=== PATIENT | male | born 1980 | race African-American/Black ===

== ENCOUNTER 2016-12-21 21:17 | Emergency (ER) | payer SELFPAY ==
[2016-12-21 21:25] VITALS: BP 106/75
[2016-12-21] MEDS ORDERED: Sodium Chloride 0.9% 10 ML Syringe FLUSH PRN (21:29)
[2016-12-21] MEDS ORDERED: methylPREDNISolone Sodium Succinate 125 MG/2 ML SDV IVPUSH ONE (21:29)
[2016-12-21] MEDS ORDERED: Albuterol/Ipratropium 3.0-0.5 MG/3 ML Neb Soln NEB ONE ×2 (21:29→21:48)
--- NOTE | 2016-12-21 21:29 | EDM.PDOC ---
ED HISTORY OF PRESENT ILLNESS - General Chief Complaint: Respiratory Problem Stated Complaint: dyspnea Time Seen by Provider: 12/21/16 21:22 Source of Information: Reports: Patient, RN, RN notes reviewed History Limitations: Reports: No limitations - History of Present Illness INITIAL COMMENTS - FREE TEXT/NARRATIVE: Patient presents to the ED at [facility] complaining of SOB and wheezing. Patient states his symptoms began about 1 hours [employer]. Patient states he has a long-standing history of asthma since a young age. Patient states he ran out of his asthma medication at home. He states he uses a rescue inhaler and nebs as needed. Symptom Onset Date: 12/21/16 Symptom Onset Time: 20:15 Timing/Duration: Reports: Getting worse - Related Data Allergies/ADRs: Allergies Allergy/AdvReac Type Severity Reaction Status Date / Time No Known Drug Allergies Allergy Other Verified 12/21/16 21:25 Home Meds: Home Meds Albuterol Sulfate [Albuterol Sulfate HFA] 2 puff IH Q4H PRN 05/03/14 [History] Albuterol [IJP: Albuterol] 2.5 mg IH Q4HR PRN #25 ml 12/21/16 [Rx] predniSONE [Deltasone] 20 mg PO BID #10 tablet 12/21/16 [Rx] Past Medical History - Past Health History Medical/Surgical History: Denies Medical/Surgical History Cardiovascular History: Reports: Heart murmur Respiratory History: Reports: Asthma Social & Family History - Tobacco Use Smoking Status *Q: Current Every Day Smoker Years of Tobacco use: 13 Packs/Tins Daily: 0.2 - Alcohol Use Days Per Week of Alcohol Use: 0 - Recreational Drug Use Recreational Drug Use: No ED ROS GENERAL - Review of Systems Review Of Systems: See Below Constitutional: Denies: fever, chills, weakness Respiratory: Reports: Shortness of Breath, Wheezing. Denies: Cough, Sputum Cardiovascular: Denies: Chest pain, Palpitations Skin: Reports: no symptoms Neurological: Reports: No Symptoms. Denies: Headache, Numbness, Paresthesia, Tingling ED EXAM, GENERAL - Physical Exam Exam: See Below Exam Limited By: No limitations General Appearance: alert, no apparent distress, thin Respiratory/Chest: no respiratory distress, wheezing (throughout all lung long ). No: accessory muscle use, retractions Cardiovascular: regular rate, rhythm Neurological: alert, oriented Skin Exam: Warm, Dry, Intact, Normal color, No rash Course - Vital Signs Last Recorded V/S: Last Vital Signs Temp 36.8 C 12/21/16 21:22 Pulse 80 12/21/16 21:22 Resp 18 12/21/16 21:22 BP 106/75 12/21/16 21:22 Pulse Ox 94 L 12/21/16 21:22 - Orders/Labs/Meds Orders: Active Orders 24 hr Category Date Time Status RT Aerosol Therapy [RC] ASDIRECTED Care 12/21/16 21:30 Active RT Aerosol Therapy [RC] ASDIRECTED Care 12/21/16 21:48 Active Sodium Chloride 0.9% [Saline Flush] Med 12/21/16 21:29 Active 10 ml FLUSH ASDIRECTED PRN Peripheral IV Insertion Adult [OM.PC] Routine Oth 12/21/16 21:29 Ordered Medication Orders Sodium Chloride (Saline Flush) 10 ml FLUSH ASDIRECTED PRN PRN Reason: Keep Vein Open Meds: Medications Generic Name Dose Route Start Last Admin Trade Name Freq PRN Reason Stop Dose Admin Sodium Chloride 10 ml 12/21/16 21:29 Saline Flush FLUSH ASDIRECTED PRN Keep Vein Open Discontinued Medications Generic Name Dose Route Start Last Admin Trade Name Freq PRN Reason Stop Dose Admin Albuterol/Ipratropium 3 ml 12/21/16 21:29 12/21/16 21:34 Duoneb 3.0-0.5 Mg/3 Ml NEB 12/21/16 21:30 3 ml ONETIME ONE Administration Albuterol/Ipratropium 3 ml 12/21/16 21:48 Duoneb 3.0-0.5 Mg/3 Ml NEB 12/21/16 21:49 ONETIME ONE Methylprednisolone Sodium Succinate 125 mg 12/21/16 21:29 12/21/16 21:35 Solu-Medrol IVPUSH 12/21/16 21:30 125 mg ONETIME ONE Administration - Re-Assessments/Exams Free Text/Narrative Re-Assessment/Exam: 12/21/16 21:59 Reassessment of lungs reveals clearing of inspiratory wheezing, but expiratory wheezing persists. Will give an additional neb. Departure - Departure Time of Disposition: 22:06 Disposition: Home, Self-Care 01 Condition: good Clinical Impression: Acute asthma exacerbation Qualifiers: Asthma severity: unspecified severity Qualified Code(s): J45.901 - Unspecified asthma with (acute) exacerbation Prescriptions: Albuterol [IJP: Albuterol] 2.5 mg IH Q4HR PRN #25 ml PRN Reason: Wheezing predniSONE [Deltasone] 20 mg PO BID #10 tablet Instructions: Asthma, Adult Forms: ED Department Discharge Additional Instructions: 1. Stay well hydrated and rest 2. Take medications as directed even if you are feeling better 3. Avoid cigarette smoke and second hand smoke 4. Establish care with a Primary to help you with your Asthma and medications - Problem List Review Problem List Initiated/Reviewed/Updated: Yes - My Orders Last 24 Hours: My Active Orders 12/21/16 21:29 Sodium Chloride 0.9% [Saline Flush] 10 ml FLUSH ASDIRECTED PRN Peripheral IV Insertion Adult [OM.PC] Routine 12/21/16 21:30 RT Aerosol Therapy [RC] ASDIRECTED 12/21/16 21:48 RT Aerosol Therapy [RC] ASDIRECTED - Assessment/Plan Last 24 Hours: My Active Orders 12/21/16 21:29 Sodium Chloride 0.9% [Saline Flush] 10 ml FLUSH ASDIRECTED PRN Peripheral IV Insertion Adult [OM.PC] Routine 12/21/16 21:30 RT Aerosol Therapy [RC] ASDIRECTED 12/21/16 21:48 RT Aerosol Therapy [RC] ASDIRECTED
== END 2016-12-21 22:17 | disposition home or self-care (01) ==
LOC: VM.ED 21:17
DX: J45.901 Unspecified asthma with (acute) exacerbation (principal); F17.210 Nicotine dependence, cigarettes, uncomplicated
CPT/HCPCS: 94640; 99284; J2930

== ENCOUNTER 2017-09-05 05:10 | Emergency (ER) | payer SELFPAY ==
[2017-09-05 05:21] VITALS: BP 109/74
--- NOTE | 2017-09-05 05:22 | EDM.PDOC ---
ED HPI GENERAL MEDICAL PROBLEM - General Chief Complaint: Respiratory Problem Stated Complaint: Shortness of breath, asthma Time Seen by Provider: 09/05/17 05:11 Source of Information: Reports: Patient, Family, RN, RN Notes Reviewed History Limitations: Reports: No Limitations - History of Present Illness INITIAL COMMENTS - FREE TEXT/NARRATIVE: Patient presents to the ED at [facility] complaining of SOB and wheezing that started an hour or so before presentation. Patient has a long-standing history of poor compliance with his asthma treatment. Patient states he tried a neb at home which did not help his wheezing. Patient has a dry non-productive cough. No URI symptoms. No other symptoms relatable to his asthma. Patient has been in this ER several times for asthma. He has be told to find a PCP to help manage his symptoms. He has not complied with these instructions. Onset: Today - Related Data Allergies Allergy/AdvReac Type Severity Reaction Status Date / Time No Known Drug Allergies Allergy Other Verified 09/05/17 05:21 Home Meds: Home Meds Albuterol Sulfate [Albuterol Sulfate HFA] 2 puff IH Q4H PRN 05/03/14 [History] Albuterol [IJP: Albuterol] 2.5 mg IH Q4HR PRN #25 ml 12/21/16 [Rx] predniSONE [Deltasone] 1 tab PO BID 5 Days #10 tablet 09/05/17 [Rx] Past Medical History - Past Health History Medical/Surgical History: Denies Medical/Surgical History Cardiovascular History: Reports: Heart Murmur Respiratory History: Reports: Asthma Social & Family History - Tobacco Use Smoking Status *Q: Current Every Day Smoker Years of Tobacco use: 13 Packs/Tins Daily: 0.2 Used Tobacco, but Quit: Yes Month Tobacco Last Used: November - Alcohol Use Days Per Week of Alcohol Use: 0 - Recreational Drug Use Recreational Drug Use: No ED ROS GENERAL - Review of Systems Review Of Systems: See Below Constitutional: Denies: Fever, Chills, Weakness HEENT: Reports: No Symptoms Respiratory: Reports: Shortness of Breath, Wheezing, Pleuritic Chest Pain, Cough. Denies: Sputum Cardiovascular: Denies: Chest Pain, Palpitations GI/Abdominal: Denies: Abdominal Pain, Nausea, Vomiting Skin: Reports: No Symptoms Neurological: Reports: No Symptoms. Denies: Dizziness, Headache ED EXAM, GENERAL - Physical Exam Exam: See Below Exam Limited By: No Limitations General Appearance: Alert, No Apparent Distress Respiratory/Chest: No Respiratory Distress, Wheezing (throughout all lung long ). No: No Accessory Muscle Use Cardiovascular: Normal Peripheral Pulses, Regular Rate, Rhythm Peripheral Pulses: 2+: Radial (L), Radial (R) GI/Abdominal: Normal Bowel Sounds, Soft, Non-Tender Neurological: Alert, Oriented Skin Exam: Warm, Dry, Intact, Normal Color, No Rash Course - Vital Signs Last Recorded V/S: Last Vital Signs Temp 37.6 C 09/05/17 05:10 Pulse 116 H 09/05/17 05:10 Resp 20 09/05/17 05:10 BP 109/74 09/05/17 05:10 Pulse Ox 95 09/05/17 05:10 - Orders/Labs/Meds Orders: Active Orders 24 hr Category Date Time Status RT Aerosol Therapy [RC] ASDIRECTED Care 09/05/17 05:27 Active Meds: Medications Discontinued Medications Generic Name Dose Route Start Last Admin Trade Name Uriel PRN Reason Stop Dose Admin Albuterol/Ipratropium 3 ml 09/05/17 05:27 09/05/17 05:32 Duoneb 3.0-0.5 Mg/3 Ml NEB 09/05/17 05:28 3 ml ONETIME ONE Administration Methylprednisolone Sodium Succinate 125 mg 09/05/17 05:28 Solu-Medrol IM 09/05/17 05:29 ONETIME ONE Departure - Departure Time of Disposition: 05:41 Disposition: Home, Self-Care 01 Condition: Good Clinical Impression: Uncontrolled intermittent asthma - Discharge Information Prescriptions: predniSONE [Deltasone] 1 tab PO BID 5 Days #10 tablet Instructions: Asthma, Adult Referrals: [facility] [Ordering Only Provider] - Forms: ED Department Discharge Additional Instructions: 1. Stay well hydrated and rest 2. Take prednisone medication for the full coarse, even if your breathing is better 3. Avoid any cigarette smoke or other environmental inhalation irritants 4. You NEED to establish care with a Primary Care provider for your asthma to get you on medications 5. Avoid going out in cold weather, if possible. Cold dry air will make the asthma worse 6. Call with any questions/concerns - Problem List Review Problem List Initiated/Reviewed/Updated: Yes - My Orders Last 24 Hours: My Active Orders 09/05/17 05:27 RT Aerosol Therapy [RC] ASDIRECTED - Assessment/Plan Last 24 Hours: My Active Orders 09/05/17 05:27 RT Aerosol Therapy [RC] ASDIRECTED
[2017-09-05] MEDS ORDERED: Albuterol/Ipratropium 3.0-0.5 MG/3 ML Neb Soln NEB ONE (05:27)
[2017-09-05] MEDS ORDERED: methylPREDNISolone Sodium Succinate 125 MG/2 ML SDV IM ONE (05:28)
== END 2017-09-05 06:00 | disposition home or self-care (01) ==
LOC: VM.ED 05:10
DX: J45.20 Mild intermittent asthma, uncomplicated (principal); F17.210 Nicotine dependence, cigarettes, uncomplicated
CPT/HCPCS: 94640; 96372; 99284; J2930; 99283-GF

== ENCOUNTER 2017-10-13 07:46 | Observation (INO) | payer SELFPAY ==
[2017-10-13] MEDS ORDERED: methylPREDNISolone Sodium Succinate 125 MG/2 ML SDV IVPUSH ONE (08:03)
[2017-10-13] MEDS ORDERED: Sodium Chloride 0.9% 1,000 ML IV ONE (08:03)
[2017-10-13] MEDS ORDERED: Albuterol/Ipratropium 3.0-0.5 MG/3 ML Neb Soln NEB ONE ×2 (08:04→08:28)
[2017-10-13] MEDS ORDERED: Albuterol 0.083% 2.5 MG/3 ML Neb Soln NEB ONE (08:04)
[2017-10-13 08:44] LABS: CHLORIDE,CL 107 mmol/L (98-107); SODIUM,NA 143 mmol/L (136-145)
[2017-10-13] MEDS ORDERED: Albuterol 0.083% 2.5 MG/3 ML Neb Soln NEB PRN (09:52)
[2017-10-13] MEDS ORDERED: methylPREDNISolone Sodium Succinate 125 MG/2 ML SDV IVPUSH SCH (10:00)
[2017-10-13] MEDS: Albuterol/Ipratropium 3.0-0.5 MG/3 ML Neb Soln NEB SCH ×4 (11:04→23:26)
[2017-10-13] MEDS: Doxycycline 100 MG Cap PO SCH ×2 (11:32→20:53)
[2017-10-13] MEDS ORDERED: FLU Vacc QS 2017-18 (36mos UP)/PF 60 MCG/0.5 ML Syringe IM ONE (13:00)
[2017-10-13] MEDS: methylPREDNISolone Sodium Succinate 125 MG/2 ML SDV IVPUSH SCH ×2 (16:12→23:26)
--- NOTE | 2017-10-13 17:27 | EDM.PDOC ---
ED HPI GENERAL MEDICAL PROBLEM - General Chief Complaint: Respiratory Problem Time Seen by Provider: 10/13/17 08:05 Source of Information: Reports: Patient History Limitations: Reports: No Limitations - History of Present Illness INITIAL COMMENTS - FREE TEXT/NARRATIVE: This ER note can be used as an admission H and P Pt. presents to ER with progressive dyspnea. Pt. has a history of poorly controlled asthma. He has a long-standing history of non-compliance. He states that he has been out of his albuterol for a long time. Pt. states that he is experiencing a cough productive of greenish sputum. Denies fever or chills. Pt. continues to smoke. He states that he has been hospitalized with asthma exacerbation in the past, but denies previous endotrachial intubation. Location: Reports: Chest, Generalized Improves with: Reports: Rest Worsens with: Reports: Movement Associated Symptoms: Reports: cough w sputum, Malaise, Shortness of Breath, Weakness CHEST Pain Score (Numeric/FACES): 5 - Related Data Allergies Allergy/AdvReac Type Severity Reaction Status Date / Time No Known Drug Allergies Allergy Other Verified 10/13/17 07:59 Home Meds: Home Meds Albuterol Sulfate [Albuterol Sulfate HFA] 2 puff IH Q4H PRN 05/03/14 [History] Albuterol [IJP: Albuterol] 2.5 mg IH Q4HR PRN #25 ml 12/21/16 [Rx] Past Medical History - Past Health History Medical/Surgical History: Denies Medical/Surgical History Cardiovascular History: Reports: Heart Murmur Respiratory History: Reports: Asthma Gastrointestinal History: Reports: Other (See Below) Other Gastrointestinal History: UMBILICAL HERNIA Musculoskeletal History: Reports: Fracture Other Musculoskeletal History: ARM AND LEG, 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 - Past Surgical History Respiratory Surgical History: Reports: None Dermatological Surgical History: Reports: None Social & Family History - Family History Family Medical History: Noncontributory - Tobacco Use Smoking Status *Q: Former Smoker Years of Tobacco use: 10 Packs/Tins Daily: 0.5 Used Tobacco, but Quit: Yes Month Tobacco Last Used: SEPTEMBER Second Hand Smoke Exposure: No - Caffeine Use Caffeine Use: Reports: Coffee - Alcohol Use Days Per Week of Alcohol Use: 0 - Recreational Drug Use Recreational Drug Use: No ED ROS GENERAL - Review of Systems Review Of Systems: See Below Constitutional: Reports: Malaise, Weakness, Fatigue HEENT: Reports: No Symptoms Respiratory: Reports: Shortness of Breath, Wheezing, Cough, Sputum Cardiovascular: Reports: No Symptoms Endocrine: Reports: No Symptoms GI/Abdominal: Reports: No Symptoms : Reports: No Symptoms Musculoskeletal: Reports: No Symptoms Skin: Reports: No Symptoms Neurological: Reports: No Symptoms Psychiatric: Reports: No Symptoms Hematologic/Lymphatic: Reports: No Symptoms Immunologic: Reports: Environmental Allergy ED EXAM, GENERAL - Physical Exam Exam: See Below Exam Limited By: No Limitations General Appearance: Alert, WD/WN, No Apparent Distress Eye Exam: Bilateral Eye: EOMI, Normal Fundi, Normal Inspection, PERRL Ears: Normal External Exam, Normal Canal, Hearing Grossly Normal, Normal TMs Nose: Normal Inspection, Normal Mucosa, No Blood Throat/Mouth: Normal Inspection, Normal Lips, Normal Teeth, Normal Gums, Normal Oropharynx, Normal Voice, No Airway Compromise Head: Atraumatic, Normocephalic Neck: Normal Inspection, Supple, Non-Tender, Full Range of Motion Respiratory/Chest: Respiratory Distress, Decreased Breath Sounds, Rhonchi, Wheezing, Accessory Muscle Use, Prolonged Expiration Cardiovascular: Normal Peripheral Pulses, Regular Rate, Rhythm, No Edema, No Gallop, No JVD, No Murmur, No Rub Peripheral Pulses: 2+: Radial (L), Radial (R) GI/Abdominal: Normal Bowel Sounds, Soft, Non-Tender, No Organomegaly, No Distention, No Abnormal Bruit, No Mass (Male) Exam: Deferred Rectal (Males) Exam: Deferred Back Exam: Normal Inspection, Full Range of Motion Extremities: Normal Inspection, Normal Range of Motion, Non-Tender, Normal Capillary Refill, No Pedal Edema Neurological: Alert, Oriented, CN II-XII Intact, Normal Cognition, Normal Gait, Normal Reflexes, No Motor/Sensory Deficits Psychiatric: Normal Affect, Normal Mood Skin Exam: Warm, Dry, Intact, Normal Color, No Rash Lymphatic: No Adenopathy Course - Vital Signs Last Recorded V/S: Last Vital Signs Temp 37.2 C 10/13/17 14:00 Pulse 85 10/13/17 14:00 Resp 12 10/13/17 14:00 BP 142/82 H 10/13/17 14:00 Pulse Ox 92 L 10/13/17 14:00 - Orders/Labs/Meds Orders: Active Orders 24 hr Category Date Time Status Chest 1V Frontal [CR] Stat Exams 10/13/17 08:02 Taken Sodium Chloride 0.9% [Saline Flush] Med 10/13/17 08:02 Active 10 ml FLUSH ASDIRECTED PRN Peripheral IV Insertion Adult [OM.PC] Routine Oth 10/13/17 08:03 Ordered Medication Orders Albuterol (Proventil Neb Soln) 2.5 mg NEB Q2H PRN PRN Reason: Dyspnea Albuterol/Ipratropium (Duoneb 3.0-0.5 Mg/3 Ml) 3 ml NEB Q4HRRT [facility] Last Admin: 10/13/17 14:55 Dose: 3 ml Admin: 10/13/17 11:04 Dose: 3 ml Doxycycline Hyclate (Vibramycin) 100 mg PO BID [facility] Last Admin: 10/13/17 11:32 Dose: 100 mg Methylprednisolone Sodium Succinate (Solu-Medrol) 125 mg IVPUSH Q8H [facility] Last Admin: 10/13/17 16:12 Dose: 125 mg Sodium Chloride (Saline Flush) 10 ml FLUSH ASDIRECTED PRN PRN Reason: Keep Vein Open Labs: Laboratory Tests 10/13/17 10/13/17 10/13/17 Range/Units 08:15 08:15 08:15 WBC 10.6 H (4.0-10.0) x10^3/uL RBC 5.39 (4.5-6.0) x10^6/uL Hgb 14.6 (14.0-18.0) g/dL Hct 42.9 (40.0-52.0) % MCV 79.6 (78.0-93.0) fL MCH 27.1 (26.0-32.0) pg MCHC 34.0 (32.0-36.0) g/dL RDW Coeff of Kris 15.8 H (10.0-15.0) % Plt Count 282 (130-400) x10^3/uL Neut % (Auto) 69.6 (50.0-80.0) % Lymph % (Auto) 20.1 L (25.0-50.0) % [place] % (Auto) 6.9 (2.0-11.0) % Eos % (Auto) 3.2 (0.0-4.0) % Baso % (Auto) 0.2 (0.2-1.2) % Sodium 143 (136-145) mmol/L Potassium 4.2 (3.5-5.1) mmol/L Chloride 107 (98-107) mmol/L Carbon Dioxide 25 (21-32) mmol/L BUN 12 (7-18) mg/dL Creatinine 1.3 (0.70-1.30) mg/dL Est Cr Clr Drug Dosing TNP Estimated GFR (MDRD) > 60 Glucose 93 (74-106) mg/dL Lactic Acid 0.9 (0.4-2.0) mmol/L Calcium 9.2 (8.5-10.1) mg/dL Corrected Calcium 9.20 (8.5-10.1) mg/dL Total Bilirubin 1.1 H (0.2-1.0) mg/dL AST 14 L (15-37) U/L ALT 20 (16-63) U/L Alkaline Phosphatase 68 (46-116) U/L C-Reactive Protein < 0.2 (<=0.9) mg/dL Total Protein 7.8 (6.4-8.2) g/dL Albumin 4.0 (3.4-5.0) g/dL Globulin 3.8 Albumin/Globulin Ratio 1.05 Meds: Medications Generic Name Dose Route Start Last Admin Trade Name Freq PRN Reason Stop Dose Admin Albuterol 2.5 mg 10/13/17 09:52 Proventil Neb Soln NEB Q2H PRN Dyspnea Albuterol/Ipratropium 3 ml 10/13/17 11:00 10/13/17 14:55 Duoneb 3.0-0.5 Mg/3 Ml NEB 3 ml Q4HRRT [facility] Administration Doxycycline Hyclate 100 mg 10/13/17 11:15 10/13/17 11:32 Vibramycin PO 100 mg BID FR[facility]Z Administration Methylprednisolone Sodium Succinate 125 mg 10/13/17 16:00 10/13/17 16:12 Solu-Medrol IVPUSH 125 mg Q8H [facility] Administration Sodium Chloride 10 ml 10/13/17 08:02 Saline Flush FLUSH ASDIRECTED PRN Keep Vein Open Discontinued Medications Generic Name Dose Route Start Last Admin Trade Name Freq PRN Reason Stop Dose Admin Albuterol 2.5 mg 10/13/17 08:04 10/13/17 08:12 Proventil Neb Soln NEB 10/13/17 08:05 2.5 mg ONETIME ONE Administration Albuterol/Ipratropium 3 ml 10/13/17 08:04 10/13/17 07:55 Duoneb 3.0-0.5 Mg/3 Ml NEB 10/13/17 08:05 3 ml ONETIME ONE Administration Albuterol/Ipratropium 3 ml 10/13/17 08:28 10/13/17 08:29 Duoneb 3.0-0.5 Mg/3 Ml NEB 10/13/17 08:29 3 ml ONETIME ONE Administration Sodium Chloride 1,000 mls @ 1,000 mls/hr 10/13/17 08:03 10/13/17 08:20 Normal Saline IV 10/13/17 09:02 1,000 mls/hr .BOLUS ONE Administration Influenza Virus Vaccine 60 mcg 10/13/17 13:00 Fluzone Quad [id number] IM 10/13/17 13:01 .ONCE ONE Methylprednisolone Sodium Succinate 125 mg 10/13/17 08:03 10/13/17 08:20 Solu-Medrol IVPUSH 10/13/17 08:04 125 mg ONETIME ONE Administration Methylprednisolone Sodium Succinate 125 mg 10/13/17 10:00 10/13/17 11:07 Solu-Medrol IVPUSH Not Given Q8H [facility] - Radiology Interpretation Free Text/Narrative:: CXR negative for acute pathology Departure - Departure Time of Disposition: 10:30 Disposition: Refer to Observation Condition: Critical Clinical Impression: Asthma with status asthmaticus - Discharge Information - My Orders Last 24 Hours: My Active Orders 10/13/17 08:02 Chest 1V Frontal [CR] Stat Sodium Chloride 0.9% [Saline Flush] 10 ml FLUSH ASDIRECTED PRN 10/13/17 08:03 Peripheral IV Insertion Adult [OM.PC] Routine - Assessment/Plan Last 24 Hours: My Active Orders 10/13/17 08:02 Chest 1V Frontal [CR] Stat Sodium Chloride 0.9% [Saline Flush] 10 ml FLUSH ASDIRECTED PRN 10/13/17 08:03 Peripheral IV Insertion Adult [OM.PC] Routine Assessment:: Status asthmaticus Acute bronchitis Plan: Admit-observation code level 1 Duonebs Q4 hours Albuterol 2.5mg Q2 hr Solu Medrol 125mg every 6 hours
[2017-10-13] MEDS ORDERED: Ibuprofen 200 MG Tab PO ONE (21:00)
[2017-10-14] MEDS: Albuterol/Ipratropium 3.0-0.5 MG/3 ML Neb Soln NEB SCH ×6 (02:58→23:08)
--- NOTE | 2017-10-14 05:18 | PCM.PN ---
- General Info Date of Service: 10/14/17 Admission Dx/Problem (Free Text): Pt. states that he is feeling better. He states that his dyspnea has improved significantly. He still continues to experience some wheezing. He is not on O2. He states that his cough as occasionally productive of greenish sputum. Pt. is currently receiving scheduled duoneb treatments along with PRN albuterol. He is recieving IV solu medrol and was started on doxycycline for bronchitisl Pt. peak flow was checked this AM and was 320, which is 69% of predicted. He was at 250 on admission, which is approx. 54% of predicted. Functional Status: Reports: Pain Controlled - Review of Systems General: Reports: No Symptoms HEENT: Reports: No Symptoms Pulmonary: Reports: Shortness of Breath, Sputum, Wheezing Cardiovascular: Reports: No Symptoms Gastrointestinal: Reports: No Symptoms Genitourinary: Reports: No Symptoms Musculoskeletal: Reports: No Symptoms Skin: Reports: No Symptoms Neurological: Reports: No Symptoms Psychiatric: Reports: No Symptoms - Patient Data Vitals - Most Recent: Last Vital Signs Temp 36.7 C 10/14/17 02:00 Pulse 87 10/14/17 02:00 Resp 18 10/14/17 02:00 BP 114/69 10/14/17 02:00 Pulse Ox 93 L 10/14/17 02:00 Weight - Most Recent: 64.977 kg I&O - Last 24 Hours: Intake & Output 10/13/17 10/13/17 10/14/17 14:59 22:59 06:59 Intake Total 380 514 Balance 380 514 Med Orders - Current: Current Medications Albuterol (Proventil Neb Soln) 2.5 mg NEB Q2H PRN PRN Reason: Dyspnea Albuterol/Ipratropium (Duoneb 3.0-0.5 Mg/3 Ml) 3 ml NEB Q4HRRT [facility] Last Admin: 10/14/17 02:58 Dose: 3 ml Doxycycline Hyclate (Vibramycin) 100 mg PO BID [facility] Last Admin: 10/13/17 20:53 Dose: 100 mg Methylprednisolone Sodium Succinate (Solu-Medrol) 125 mg IVPUSH Q8H [facility] Last Admin: 10/13/17 23:26 Dose: 125 mg Sodium Chloride (Saline Flush) 10 ml FLUSH ASDIRECTED PRN PRN Reason: Keep Vein Open Discontinued Medications Albuterol (Proventil Neb Soln) 2.5 mg NEB ONETIME ONE Stop: 10/13/17 08:05 Last Admin: 10/13/17 08:12 Dose: 2.5 mg Albuterol/Ipratropium (Duoneb 3.0-0.5 Mg/3 Ml) 3 ml NEB ONETIME ONE Stop: 10/13/17 08:05 Last Admin: 10/13/17 07:55 Dose: 3 ml Albuterol/Ipratropium (Duoneb 3.0-0.5 Mg/3 Ml) 3 ml NEB ONETIME ONE Stop: 10/13/17 08:29 Last Admin: 10/13/17 08:29 Dose: 3 ml Sodium Chloride (Normal Saline) 1,000 mls @ 1,000 mls/hr IV .BOLUS ONE Stop: 10/13/17 09:02 Last Admin: 10/13/17 08:20 Dose: 1,000 mls/hr Ibuprofen (Motrin) 800 mg PO ONETIME ONE Stop: 10/13/17 21:01 Last Admin: 10/13/17 21:07 Dose: 800 mg Influenza Virus Vaccine (Fluzone Quad [id number]) 60 mcg IM .ONCE ONE Stop: 10/13/17 13:01 Methylprednisolone Sodium Succinate (Solu-Medrol) 125 mg IVPUSH ONETIME ONE Stop: 10/13/17 08:04 Last Admin: 10/13/17 08:20 Dose: 125 mg Methylprednisolone Sodium Succinate (Solu-Medrol) 125 mg IVPUSH Q8H [facility] Last Admin: 10/13/17 11:07 Dose: Not Given - Exam Quality Assessment: Supplemental Oxygen General: Alert, Oriented HEENT: Pupils Equal, Pupils Reactive, EOMI, Mucous Membr. Moist/[place] Neck: Supple Lungs: Decreased Breath Sounds, Wheezing Cardiovascular: Regular Rate, Regular Rhythm GI/Abdominal Exam: Normal Bowel Sounds, Soft, Non-Tender, No Organomegaly, No Distention, No Abnormal Bruit, No Mass, Pelvis Stable (Male) Exam: Deferred Back Exam: Normal Inspection, Full Range of Motion Extremities: Normal Inspection, Normal Range of Motion, Non-Tender, No Pedal Edema, Normal Capillary Refill Peripheral Pulses: 4+: Radial (L), Radial (R) Skin: Warm, Dry, Intact Wound/Incisions: Healing Well Neurological: No New Focal Deficit Psy/Mental Status: Alert, Normal Affect, Normal Mood - Problem List Review Problem List Initiated/Reviewed/Updated: Yes - My Orders Last 24 Hours: My Active Orders 10/13/17 09:51 Intake and Output [RC] ,18 Oxygen Therapy [RC] .PRN Up ad Jessica [RC] 08,20 Vital Signs [RC] 06,10,14,18,22,02 10/13/17 09:52 RT Aerosol Therapy [RC] .PRN Albuterol [Proventil Neb Soln] 2.5 mg NEB Q2H PRN 10/13/17 09:53 RT Aerosol Therapy [RC] 07,11,15,19,23,03 10/13/17 11:00 Albuterol/Ipratropium [DuoNeb 3.0-0.5 MG/3 ML] 3 ml NEB Q4HRRT 10/13/17 11:15 Doxycycline [Vibramycin] 100 mg PO BID 10/13/17 14:46 Code Status [Resuscitation Status] Routine 10/13/17 16:00 methylPREDNISolone Sod Succ [Solu-MEDROL] 125 mg IVPUSH Q8H 10/13/17 Lunch Regular Diet [DIET] - Assessment Assessment:: Asthma exacerbation acute bronchitis - Plan Plan:: Pt. peak flow is still dangerously low. Discussed findings with pt. Decision was made to keep pt. in throughout the day. Will continue with neb treatments and IV solu medrol. Will repeat labs and chest XR this AM.
[2017-10-14 07:27] LABS: CHLORIDE,CL 108 mmol/L (98-107); SODIUM,NA 142 mmol/L (136-145)
[2017-10-14] MEDS: methylPREDNISolone Sodium Succinate 125 MG/2 ML SDV IVPUSH SCH ×2 (08:57→16:53)
[2017-10-14] MEDS: Doxycycline 100 MG Cap PO SCH (08:57)
[2017-10-14] MEDS: Sodium Chloride 0.9% 10 ML Syringe FLUSH PRN ×2 (08:57→16:53)
[2017-10-14] MEDS ORDERED: FLU Vacc QS 2017-18 (36mos UP)/PF 60 MCG/0.5 ML Syringe IM ONE (11:00)
[2017-10-14] MEDS ORDERED: Sodium Chloride 0.9% 10 ML Syringe FLUSH PRN (18:16)
--- NOTE | 2017-10-14 18:42 | PCM.PN ---
- General Info Date of Service: 10/14/17 Admission Dx/Problem (Free Text): Asthma with status Asthmaticus Subjective Update: Patient offers no specific complaints this afternoon. The patient states that overall he feels better with his breathing than he did yesterday. The patient does have a dry cough, however this is gotten progressively better as well. The patient denies any shortness of breath. The patient is able to speak in full sentences. The patient denies any problems with urination or bowel movements. The patient is ambulating independently within his room. Otherwise no other concerns. Functional Status: Reports: Pain Controlled, Tolerating Diet, Ambulating, Urinating - Review of Systems General: Denies: Fever, Weakness, Chills Pulmonary: Reports: Cough, Wheezing. Denies: Shortness of Breath, Sputum Cardiovascular: Denies: Chest Pain, Palpitations Gastrointestinal: Denies: Abdominal Pain, Nausea, Vomiting Skin: Reports: No Symptoms Neurological: Reports: No Symptoms. Denies: Dizziness, Headache - Patient Data Vitals - Most Recent: Last Vital Signs Temp 37.2 C 10/14/17 16:49 Pulse 97 10/14/17 16:49 Resp 20 10/14/17 16:49 BP 129/77 10/14/17 16:49 Pulse Ox 92 L 10/14/17 16:49 Weight - Most Recent: 64.977 kg I&O - Last 24 Hours: Intake & Output 10/14/17 10/14/17 10/14/17 06:59 14:59 22:59 Intake Total 360 460 600 Output Total 400 Balance -40 460 600 Lab Results Last 24 Hours: Laboratory Results - last 24 hr 10/14/17 10/14/17 Range/Units 06:33 06:33 WBC 19.9 H (4.0-10.0) x10^3/uL RBC 4.98 (4.5-6.0) x10^6/uL Hgb 13.8 L (14.0-18.0) g/dL Hct 39.4 L (40.0-52.0) % MCV 79.1 (78.0-93.0) fL MCH 27.7 (26.0-32.0) pg MCHC 35.0 (32.0-36.0) g/dL RDW Coeff of Kris 15.7 H (10.0-15.0) % Plt Count 266 (130-400) x10^3/uL Add Manual Diff Yes Neutrophils % (Manual) 83 H (50-80) % Band Neutrophils % 3 (0-6) % Lymphocytes % (Manual) 12 L (25-50) % Monocytes % (Manual) 2 (2-11) % Vacuolated Monocytes Rare Platelet Estimate Adequate Anisocytosis 1+ slight H Sodium 142 (136-145) mmol/L Potassium 4.0 (3.5-5.1) mmol/L Chloride 108 H (98-107) mmol/L Carbon Dioxide 20 L (21-32) mmol/L BUN 16 (7-18) mg/dL Creatinine 1.1 (0.70-1.30) mg/dL Est Cr Clr Drug Dosing 85.32 mL/min Estimated GFR (MDRD) > 60 Glucose 120 H (74-106) mg/dL Calcium 9.1 (8.5-10.1) mg/dL Corrected Calcium 9.42 (8.5-10.1) mg/dL Total Bilirubin 1.3 H (0.2-1.0) mg/dL AST 12 L (15-37) U/L ALT 16 (16-63) U/L Alkaline Phosphatase 61 (46-116) U/L Total Protein 7.2 (6.4-8.2) g/dL Albumin 3.6 (3.4-5.0) g/dL Globulin 3.6 Albumin/Globulin Ratio 1.00 Med Orders - Current: Current Medications Albuterol (Proventil Neb Soln) 2.5 mg NEB Q2H PRN PRN Reason: Dyspnea Albuterol/Ipratropium (Duoneb 3.0-0.5 Mg/3 Ml) 3 ml NEB Q4HRRT [facility] Last Admin: 10/14/17 14:45 Dose: 3 ml Sodium Chloride (Saline Flush) 10 ml FLUSH ASDIRECTED PRN PRN Reason: Keep Vein Open Last Admin: 10/14/17 16:53 Dose: 10 ml Sodium Chloride (Saline Flush) 10 ml FLUSH ASDIRECTED PRN PRN Reason: Keep Vein Open Discontinued Medications Albuterol (Proventil Neb Soln) 2.5 mg NEB ONETIME ONE Stop: 10/13/17 08:05 Last Admin: 10/13/17 08:12 Dose: 2.5 mg Albuterol/Ipratropium (Duoneb 3.0-0.5 Mg/3 Ml) 3 ml NEB ONETIME ONE Stop: 10/13/17 08:05 Last Admin: 10/13/17 07:55 Dose: 3 ml Albuterol/Ipratropium (Duoneb 3.0-0.5 Mg/3 Ml) 3 ml NEB ONETIME ONE Stop: 10/13/17 08:29 Last Admin: 10/13/17 08:29 Dose: 3 ml Doxycycline Hyclate (Vibramycin) 100 mg PO BID [facility] Last Admin: 10/14/17 08:57 Dose: 100 mg Sodium Chloride (Normal Saline) 1,000 mls @ 1,000 mls/hr IV .BOLUS ONE Stop: 10/13/17 09:02 Last Admin: 10/13/17 08:20 Dose: 1,000 mls/hr Ibuprofen (Motrin) 800 mg PO ONETIME ONE Stop: 10/13/17 21:01 Last Admin: 10/13/17 21:07 Dose: 800 mg Influenza Virus Vaccine (Fluzone Quad [id number]) 60 mcg IM .ONCE ONE Stop: 10/14/17 11:01 Last Admin: 10/14/17 13:49 Dose: 60 mcg Methylprednisolone Sodium Succinate (Solu-Medrol) 125 mg IVPUSH ONETIME ONE Stop: 10/13/17 08:04 Last Admin: 10/13/17 08:20 Dose: 125 mg Methylprednisolone Sodium Succinate (Solu-Medrol) 125 mg IVPUSH Q8H [facility] Last Admin: 10/13/17 11:07 Dose: Not Given Methylprednisolone Sodium Succinate (Solu-Medrol) 125 mg IVPUSH Q8H [facility] Last Admin: 10/14/17 16:53 Dose: 125 mg - Exam General: Alert, Oriented Neck: Supple Lungs: Normal Respiratory Effort, Decreased Breath Sounds, Wheezing Cardiovascular: Regular Rate, Regular Rhythm, Murmurs GI/Abdominal Exam: Normal Bowel Sounds, Soft, Non-Tender Peripheral Pulses: 2+: Radial (L), Radial (R) Skin: Warm, Dry, Intact Neurological: No New Focal Deficit - Problem List & Annotations (1) Asthma with status asthmaticus SNOMED Code(s): 102011678 Code(s): J45.902 - UNSPECIFIED ASTHMA WITH STATUS ASTHMATICUS Status: Acute Priority: Medium Current Visit: Yes Onset Date: ~10/13/17 Qualifiers: Asthma severity: severe Asthma persistence: persistent Qualified Code(s) : J45.52 - Severe persistent asthma with status asthmaticus - Problem List Review Problem List Initiated/Reviewed/Updated: Yes - My Orders Last 24 Hours: My Active Orders 10/14/17 09:00 RT Peak Flow Measurement [RC] ASDIRECTED 10/14/17 18:16 Sodium Chloride 0.9% [Saline Flush] 10 ml FLUSH ASDIRECTED PRN Convert IV to Saline Lock [OM.PC] Routine 10/15/17 05:11 BASIC METABOLIC PANEL,BMP [CHEM] Routine CBC WITH AUTO DIFF [HEME] Routine - Assessment Assessment:: Asthma with status asthmaticus - Plan Plan:: 37-year-old male patient with a past medical history of asthma and heart murmur was admitted to the observation unit at [facility] [place] for a diagnosis of asthma with status asthmaticus. The patient states he feels better today. The patient's peak flow prior to bronchial dilator is 250. Peak flow after bronchodilator is 300. We did check this 3 times today and the patient had the same result each time. Therefore, I believe this is the patient's best he will be with his peak flow given his extensive asthma history. The patient would certainly benefit from long-acting bronchodilator treatment and smoking cessation. There is no clinical indication for the doxycycline, therefore it will be discontinued today. Solu-Medrol will be discontinued as they do not feel the patient is currently benefiting from this medicine. We will continue with the dual nebs as ordered. I will recheck a CBC and BMP in the a.m. on October 15, 2017. The patient will need a full PFT in the future to accurately assess his asthma and to determine proper treatment. I did discuss this with the patient today and he agrees. The patient will most likely be is discharged home tomorrow as long as he remains stable. The patient will be discharged on oral prednisone. I will make an appointment for the patient to follow-up at [facility] in [place].
[2017-10-15] MEDS: Albuterol/Ipratropium 3.0-0.5 MG/3 ML Neb Soln NEB SCH ×3 (02:46→10:50)
[2017-10-15 06:13] VITALS: BP 130/90
[2017-10-15 07:07] LABS: CHLORIDE,CL 107 mmol/L (98-107); SODIUM,NA 142 mmol/L (136-145)
--- NOTE | 2017-10-15 11:33 | PCM.DCSUM1 ---
Discharge Summary - Hospital Course HPI Initial Comments: Pt. presented to ER at [facility] with progressive dyspnea. Pt. has a history of poorly controlled asthma. He has a long-standing history of non- compliance. He states that he has been out of his albuterol for a long time. Pt. states that he is experiencing a cough productive of greenish sputum. Denies fever or chills. Pt. continues to smoke. He states that he has been hospitalized with asthma exacerbation in the past, but denies previous endotrachial intubation. 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 Patient did require a full observation stay due to needing pulmonary meds. Patent feels much better today. No issues with urination or BM's. Ambulating independently in room. Tolerated diet without problems. Patient remained hemodynamically stable. No fevers. - Patient Instructions Diet: Heart Healthy Diet Activity: No Strenuous Activities, Rest and Relax Today Driving: Do Not Drive (just for today) Showering/Bathing: May Shower Notify Provider of: Increased Pain, Nausea and/or Vomiting - Discharge Plan Prescriptions/Med Rec: Albuterol [Proair HFA] 2 puff INH Q4HR PRN #1 inhaler PRN Reason: Wheezing Albuterol [IJD: Albuterol] 1 unit INH Q4HR #1 box predniSONE [Deltasone] 1 tab PO BID 5 Days #10 tablet Home Medications: Home Meds Albuterol Sulfate [Albuterol Sulfate HFA] 2 puff IH Q4H PRN 05/03/14 [History] Albuterol [IJP: Albuterol] 2.5 mg IH Q4HR PRN #25 ml 12/21/16 [Rx] Albuterol [IJD: Albuterol] 1 unit INH Q4HR #1 box 10/15/17 [Rx] Albuterol [Proair HFA] 2 puff INH Q4HR PRN #1 inhaler 10/15/17 [Rx] predniSONE [Deltasone] 1 tab PO BID 5 Days #10 tablet 10/15/17 [Rx] Patient Handouts: Asthma, Adult Referrals: Jalil Cook PA-C [Ordering Only Provider] - - Discharge Summary/Plan Comment DC Time >30 min.: Yes Discharge Summary/Plan Comment: Patient will be discharge home today. He still has some wheezing, but I think his Peak flow is as good as it is going to be. Will provide scripts for Albuterol inhaler and Albuterol nebs. Will start a short coarse of Prednisone for 5 days. Patient will be schedule to establish care with a local PCP for follow up next week. Case Management working with patient to get him insured. - General Info Date of Service: 10/15/17 Admission Dx/Problem (Free Text: Asthma with status Asthmaticus Subjective Update: Patient offers no specific complaints this afternoon. The patient states that overall he feels better with his breathing than he did yesterday. The patient does have a dry cough, however this is gotten progressively better as well. The patient denies any shortness of breath. The patient is able to speak in full sentences. The patient denies any problems with urination or bowel movements. The patient is ambulating independently within his room. Otherwise no other concerns. Functional Status: Reports: Pain Controlled, Tolerating Diet, Ambulating, Urinating Numeric/FACES Score: 0 - Review of Systems General: Denies: Fever, Weakness, Chills Pulmonary: Reports: Cough, Wheezing. Denies: Shortness of Breath, Sputum Cardiovascular: Denies: Chest Pain, Palpitations Gastrointestinal: Denies: Abdominal Pain, Nausea, Vomiting Skin: Reports: No Symptoms Neurological: Reports: No Symptoms. Denies: Dizziness, Headache - Patient Data Vitals - Most Recent: Last Vital Signs Temp 36.7 C 10/15/17 06:12 Pulse 77 10/15/17 06:12 Resp 12 10/15/17 06:12 BP 130/90 10/15/17 06:12 Pulse Ox 95 10/15/17 06:12 Weight - Most Recent: 64.977 kg I&O - Last 24 hours: Intake & Output 10/14/17 10/15/17 10/15/17 22:59 06:59 14:59 Intake Total 600 960 180 Balance 600 960 180 Lab Results - Last 24 hrs: Laboratory Results - last 24 hr 10/15/17 10/15/17 Range/Units 06:18 06:18 WBC 20.7 H* (4.0-10.0) x10^3/uL RBC 4.91 (4.5-6.0) x10^6/uL Hgb 13.4 L (14.0-18.0) g/dL Hct 39.0 L (40.0-52.0) % MCV 79.4 (78.0-93.0) fL MCH 27.3 (26.0-32.0) pg MCHC 34.4 (32.0-36.0) g/dL RDW Coeff of Kris 16.1 H (10.0-15.0) % Plt Count 317 (130-400) x10^3/uL Add Manual Diff Yes Neutrophils % (Manual) 85 H (50-80) % Band Neutrophils % 1 (0-6) % Lymphocytes % (Manual) 8 L (25-50) % Monocytes % (Manual) 6 (2-11) % Platelet Estimate Adequate Microcytosis 1+ slight H Sodium 142 (136-145) mmol/L Potassium 4.0 (3.5-5.1) mmol/L Chloride 107 (98-107) mmol/L Carbon Dioxide 23 (21-32) mmol/L BUN 20 H (7-18) mg/dL Creatinine 1.2 (0.70-1.30) mg/dL Est Cr Clr Drug Dosing 78.21 mL/min Estimated GFR (MDRD) > 60 Glucose 100 (74-106) mg/dL Calcium 9.0 (8.5-10.1) mg/dL Med Orders - Current: Current Medications Albuterol (Proventil Neb Soln) 2.5 mg NEB Q2H PRN PRN Reason: Dyspnea Albuterol/Ipratropium (Duoneb 3.0-0.5 Mg/3 Ml) 3 ml NEB Q4HRRT [facility] Last Admin: 10/15/17 10:50 Dose: 3 ml Sodium Chloride (Saline Flush) 10 ml FLUSH ASDIRECTED PRN PRN Reason: Keep Vein Open Last Admin: 10/14/17 16:53 Dose: 10 ml Sodium Chloride (Saline Flush) 10 ml FLUSH ASDIRECTED PRN PRN Reason: Keep Vein Open Discontinued Medications Albuterol (Proventil Neb Soln) 2.5 mg NEB ONETIME ONE Stop: 10/13/17 08:05 Last Admin: 10/13/17 08:12 Dose: 2.5 mg Albuterol/Ipratropium (Duoneb 3.0-0.5 Mg/3 Ml) 3 ml NEB ONETIME ONE Stop: 10/13/17 08:05 Last Admin: 10/13/17 07:55 Dose: 3 ml Albuterol/Ipratropium (Duoneb 3.0-0.5 Mg/3 Ml) 3 ml NEB ONETIME ONE Stop: 10/13/17 08:29 Last Admin: 10/13/17 08:29 Dose: 3 ml Doxycycline Hyclate (Vibramycin) 100 mg PO BID [facility] Last Admin: 10/14/17 08:57 Dose: 100 mg Sodium Chloride (Normal Saline) 1,000 mls @ 1,000 mls/hr IV .BOLUS ONE Stop: 10/13/17 09:02 Last Admin: 10/13/17 08:20 Dose: 1,000 mls/hr Ibuprofen (Motrin) 800 mg PO ONETIME ONE Stop: 10/13/17 21:01 Last Admin: 10/13/17 21:07 Dose: 800 mg Influenza Virus Vaccine (Fluzone Quad [id number]) 60 mcg IM .ONCE ONE Stop: 10/14/17 11:01 Last Admin: 10/14/17 13:49 Dose: 60 mcg Methylprednisolone Sodium Succinate (Solu-Medrol) 125 mg IVPUSH ONETIME ONE Stop: 10/13/17 08:04 Last Admin: 10/13/17 08:20 Dose: 125 mg Methylprednisolone Sodium Succinate (Solu-Medrol) 125 mg IVPUSH Q8H [facility] Last Admin: 10/13/17 11:07 Dose: Not Given Methylprednisolone Sodium Succinate (Solu-Medrol) 125 mg IVPUSH Q8H [facility] Last Admin: 10/14/17 16:53 Dose: 125 mg - Exam General: Reports: Alert, Oriented, Cooperative, No Acute Distress Lungs: Reports: Decreased Breath Sounds, Wheezing Cardiovascular: Reports: Regular Rate, Regular Rhythm, No Murmurs GI/Abdominal Exam: Normal Bowel Sounds, Soft, Non-Tender Extremities: Normal Inspection Skin: Reports: Warm, Dry, Intact Neurological: Reports: No New Focal Deficit *Q Meaningful Use (DIS) - VTE *Q VTE Criteria *Q: No risk for falls at time of discharge - Stroke *Q Stroke Criteria *Q: - AMI *Q AMI Criteria *Q:
== END 2017-10-15 14:15 | disposition home or self-care (01) ==
LOC: VM.ED 07:46 → VM.MS 09:36
PROVIDERS: ADMIT Physician Assistant; ATTEND Physician Assistant
DX: J45.52 Severe persistent asthma with status asthmaticus (principal); R01.1 Cardiac murmur, unspecified; J20.9 Acute bronchitis, unspecified; F17.210 Nicotine dependence, cigarettes, uncomplicated; Z91.14 Patient's other noncompliance with medication regimen; Z98.890 Other specified postprocedural states
CPT/HCPCS: 36415; 71045; 71046; 80048; 80053; 83605; 85025; 86140; 90686; 94640; 94760; 96361; 96374; 96376; 99217; 99220; 99225; 99285; A9270-GY; G0008; G0378; J2930; J7030; J7050; J7620-GY

== ENCOUNTER 2017-10-26 12:19 | Emergency (ER) | payer SELFPAY ==
[2017-10-26 12:41] VITALS: BP 140/83
--- NOTE | 2017-10-26 12:59 | EDM.PDOC ---
ED HPI GENERAL MEDICAL PROBLEM - General Chief Complaint: General Stated Complaint: SIDE PAIN Time Seen by Provider: 10/26/17 12:19 Source of Information: Reports: Patient History Limitations: Reports: No Limitations - History of Present Illness INITIAL COMMENTS - FREE TEXT/NARRATIVE: Pt. presents to ER with complaints of pain in his R inguinal area, and complaints of reducible intermittent mass. Pt. states that the discomfort is worse with exertion. He denies any fever or chills. No melena, hematochezia, nausea, or vomiting. He states that he has been experiencing the discomfort intermittently for the past week or so. Denies any specific history of lifting heavy objects, fall, or exertion. Pt. has a history of umbilical hernia as an infant. He was recently seen in ER and admitted for 2 days with COPD exacerbation. He is known to be very non-compliant and has very to follow-up for his asthma to start daily treatment, and has been using the ER when he has exacerbations. Onset: Today Onset Date: 10/26/17 Onset Time: 12:12 Location: Reports: Abdomen, Lower Extremity, Right, Other (R inguinal area) Quality: Reports: Ache Severity: Moderate Worsens with: Reports: Other (lifting, exertion) Right Groin Pain Score (Numeric/FACES): 6 - Related Data Allergies Allergy/AdvReac Type Severity Reaction Status Date / Time No Known Drug Allergies Allergy Other Verified 10/26/17 12:32 Home Meds: Home Meds Albuterol [Proair HFA] 2 puff INH Q4HR PRN #1 inhaler 10/15/17 [Rx] Past Medical History - Past Health History Medical/Surgical History: Denies Medical/Surgical History Cardiovascular History: Reports: Heart Murmur Respiratory History: Reports: Asthma Gastrointestinal History: Reports: Other (See Below) Other Gastrointestinal History: UMBILICAL HERNIA Musculoskeletal History: Reports: Fracture Other Musculoskeletal History: ARM AND LEG, 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 - Past Surgical History Respiratory Surgical History: Reports: None Dermatological Surgical History: Reports: None Social & Family History - Family History Family Medical History: Noncontributory - Tobacco Use Smoking Status *Q: Former Smoker Years of Tobacco use: 10 Packs/Tins Daily: 0.5 Used Tobacco, but Quit: Yes Month Tobacco Last Used: SEPTEMBER Second Hand Smoke Exposure: No - Caffeine Use Caffeine Use: Reports: Coffee - Alcohol Use Days Per Week of Alcohol Use: 0 - Recreational Drug Use Recreational Drug Use: No ED ROS GENERAL - Review of Systems Review Of Systems: See Below Constitutional: Reports: No Symptoms HEENT: Reports: No Symptoms Respiratory: Reports: No Symptoms Cardiovascular: Reports: No Symptoms Endocrine: Reports: No Symptoms GI/Abdominal: Reports: Distension (R inguinal area) : Reports: No Symptoms Musculoskeletal: Reports: No Symptoms Skin: Reports: No Symptoms Neurological: Reports: No Symptoms Psychiatric: Reports: No Symptoms Hematologic/Lymphatic: Reports: No Symptoms Immunologic: Reports: No Symptoms ED EXAM, GENERAL - Physical Exam Exam: See Below Exam Limited By: No Limitations General Appearance: Alert, WD/WN, No Apparent Distress Throat/Mouth: Normal Inspection, Normal Lips, Normal Teeth, Normal Gums, Normal Oropharynx, Normal Voice, No Airway Compromise Head: Atraumatic, Normocephalic Neck: Normal Inspection, Supple, Non-Tender, Full Range of Motion Respiratory/Chest: No Respiratory Distress, Lungs Clear, Normal Breath Sounds, No Accessory Muscle Use, Chest Non-Tender Cardiovascular: Normal Peripheral Pulses, Regular Rate, Rhythm, No Edema, No Gallop, No JVD, No Murmur, No Rub GI/Abdominal: Normal Bowel Sounds, Soft, Non-Tender, No Distention, No Abnormal Bruit, No Mass, Hernia (R inguinal hernia, reducible) (Male) Exam: Deferred Rectal (Males) Exam: Deferred Back Exam: Normal Inspection, Full Range of Motion, NT Extremities: Normal Inspection, Normal Range of Motion, Non-Tender, Normal Capillary Refill, No Pedal Edema Neurological: Alert, Oriented, CN II-XII Intact, Normal Cognition, Normal Gait, Normal Reflexes, No Motor/Sensory Deficits Psychiatric: Normal Affect, Normal Mood Skin Exam: Warm, Dry, Intact, Normal Color, No Rash Course - Vital Signs Last Recorded V/S: Last Vital Signs Temp 36.3 C 10/26/17 12:34 Pulse 80 10/26/17 12:34 Resp 16 10/26/17 12:34 BP 140/83 10/26/17 12:34 Pulse Ox 95 10/26/17 12:34 Departure - Departure Time of Disposition: 13:00 Disposition: Home, Self-Care 01 Condition: Good Clinical Impression: Right inguinal hernia - Discharge Information Instructions: Hernia, Adult Referrals: Katharina Newberry MD [Primary Care Provider] - Forms: ED Department Discharge Additional Instructions: Establish care today with Dr. Reji Suresh at [facility] today at 2:30 this afternoon. Your jaylen referral has been made, but your asthma needs to be under better control before you have surgery. You will also need a preop exam prior to surgery as well. Finish the prednisone you are prescribed, and start this 5 day prescription of it today. You need to stop smoking. - Assessment/Plan Assessment:: R inguinal hernia Plan: Establish care today with Dr. Reji Suresh at [facility] today at 2:30 this afternoon. Your j[facility] referral has been made, but your asthma needs to be under better control before you have surgery. You will also need a preop exam prior to surgery as well. Finish the prednisone you are prescribed, and start this 5 day prescription of it today. You need to stop smoking.
--- NOTE | 2017-10-27 02:42 | EDM.PDOC ---
ED HPI GENERAL MEDICAL PROBLEM - General Chief Complaint: General Stated Complaint: SIDE PAIN Time Seen by Provider: 10/26/17 12:19 Source of Information: Reports: Patient History Limitations: Reports: No Limitations - History of Present Illness INITIAL COMMENTS - FREE TEXT/NARRATIVE: Pt. presents to ER with complaints of pain in his R inguinal area, and complaints of reducible intermittent mass. Pt. states that the discomfort is worse with exertion. He denies any fever or chills. No melena, hematochezia, nausea, or vomiting. He states that he has been experiencing the discomfort intermittently for the past week or so. Denies any specific history of lifting heavy objects, fall, or exertion. Pt. has a history of umbilical hernia as an infant. He was recently seen in ER and admitted for 2 days with COPD exacerbation. He is known to be very non-compliant and has very to follow-up for his asthma to start daily treatment, and has been using the ER when he has exacerbations. Onset: Today Onset Date: 10/26/17 Onset Time: 12:12 Location: Reports: Abdomen, Lower Extremity, Right, Other (R inguinal area) Quality: Reports: Ache Severity: Moderate Worsens with: Reports: Other (lifting, exertion) Right Groin Pain Score (Numeric/FACES): 6 - Related Data Allergies Allergy/AdvReac Type Severity Reaction Status Date / Time No Known Drug Allergies Allergy Other Verified 10/26/17 12:32 Home Meds: Home Meds Albuterol [Proair HFA] 2 puff INH Q4HR PRN #1 inhaler 10/15/17 [Rx] Past Medical History - Past Health History Medical/Surgical History: Denies Medical/Surgical History Cardiovascular History: Reports: Heart Murmur Respiratory History: Reports: Asthma Gastrointestinal History: Reports: Other (See Below) Other Gastrointestinal History: UMBILICAL HERNIA Musculoskeletal History: Reports: Fracture Other Musculoskeletal History: ARM AND LEG, 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 - Past Surgical History Respiratory Surgical History: Reports: None Dermatological Surgical History: Reports: None Social & Family History - Family History Family Medical History: Noncontributory - Tobacco Use Smoking Status *Q: Former Smoker Years of Tobacco use: 10 Packs/Tins Daily: 0.5 Used Tobacco, but Quit: Yes Month Tobacco Last Used: SEPTEMBER Second Hand Smoke Exposure: No - Caffeine Use Caffeine Use: Reports: Coffee - Alcohol Use Days Per Week of Alcohol Use: 0 - Recreational Drug Use Recreational Drug Use: No ED ROS GENERAL - Review of Systems Review Of Systems: See Below Constitutional: Reports: No Symptoms GI/Abdominal: Reports: No Symptoms Musculoskeletal: Reports: Other (distention in area of inguinal canal on R) ED EXAM, GENERAL - Physical Exam Exam: See Below Free Text/Narrative:: Pt. presents to ER with complaints of pain in his R inguinal area, and complaints of reducible intermittent mass. Pt. states that the discomfort is worse with exertion. He denies any fever or chills. No melena, hematochezia, nausea, or vomiting. He states that he has been experiencing the discomfort intermittently for the past week or so. Denies any specific history of lifting heavy objects, fall, or exertion. Pt. has a history of umbilical hernia as an infant. He was recently seen in ER and admitted for 2 days with COPD exacerbation. He is known to be very non-compliant and has very to follow-up for his asthma to start daily treatment, and has been using the ER when he has exacerbations. Exam Limited By: No Limitations General Appearance: Alert, WD/WN, No Apparent Distress Throat/Mouth: Normal Inspection, Normal Lips, Normal Teeth, Normal Gums, Normal Oropharynx, Normal Voice, No Airway Compromise Head: Atraumatic, Normocephalic Neck: Normal Inspection, Supple, Non-Tender, Full Range of Motion Respiratory/Chest: No Respiratory Distress, Lungs Clear, Normal Breath Sounds, No Accessory Muscle Use, Chest Non-Tender Cardiovascular: Normal Peripheral Pulses, Regular Rate, Rhythm, No Edema, No Gallop, No JVD, No Murmur, No Rub GI/Abdominal: Normal Bowel Sounds, Soft, Non-Tender, No Distention, No Abnormal Bruit, No Mass, Hernia (R inguinal hernia, reducible) Back Exam: Normal Inspection, Full Range of Motion, NT Extremities: Normal Inspection, Normal Range of Motion, Non-Tender, Normal Capillary Refill, No Pedal Edema Neurological: Alert, Oriented, CN II-XII Intact, Normal Cognition, Normal Gait, Normal Reflexes, No Motor/Sensory Deficits Psychiatric: Normal Affect, Normal Mood Skin Exam: Warm, Dry, Intact, Normal Color, No Rash Course - Vital Signs Last Recorded V/S: Last Vital Signs Temp 36.3 C 10/26/17 12:34 Pulse 80 02/19/18 12:34 Resp 16 10/26/17 12:34 BP 140/83 10/26/17 12:34 Pulse Ox 95 10/26/17 12:34 Departure - Departure Time of Disposition: 13:01 Disposition: Home, Self-Care 01 Condition: Good Clinical Impression: Right inguinal hernia - Discharge Information Instructions: Hernia, Adult Referrals: Katharina Newberry MD [Primary Care Provider] - Forms: ED Department Discharge Additional Instructions: Establish care today with Dr. Reji Suresh at [facility] today at 2:30 this afternoon. Your jaylen referral has been made, but your asthma needs to be under better control before you have surgery. You will also need a preop exam prior to surgery as well. Finish the prednisone you are prescribed, and start this 5 day prescription of it today. You need to stop smoking.
== END 2017-10-26 13:00 | disposition home or self-care (01) ==
LOC: VM.ED 12:19
DX: K40.90 Unilateral inguinal hernia, without obstruction or gangrene, not specified as recurrent (principal); Z87.891 Personal history of nicotine dependence
CPT/HCPCS: 99283; 99283-GF